=== PATIENT | male | born 1965 | race African-American/Black ===

== ENCOUNTER 2017-07-18 19:52 | Emergency (ER) | payer OTHER ==
[~2017-07-18] VITALS: Ht 175.3 cm; Wt 63.5 kg
[~2017-07-18 19:52] MED LIST: DILAUDID2 MG PO; FENTANYL12 MCG/HR PO; IND25 PO; KEFLEX500 MG PO; LAC PO
[2017-07-18 20:04] VITALS: Ht 175.3 cm; Wt 63.5 kg
[2017-07-18 21:41] LABS: BASOPHIL % 1.7 % (0-2); PLATELET COUNT 258 x10^3mcL (130-400)
[2017-07-18 22:00] LABS: ALBUMIN 3.6 g/dL (3.4-5.0); ALKALINE PHOSPHATASE 73 U/L (46-116); ALT/SGPT 22 U/L (16-63); AST/SGOT 23 U/L (15-37); BILIRUBIN TOTAL 0.4 mg/dL (0.20-1.00); CALCIUM 8.5 mg/dL (8.5-10.1); CARBON DIOXIDE 27.5 mmol/L (21-32); CHLORIDE SERUM 104 mmol/L (98-107); GFR1 > 60 mL/min; GLUCOSE SERUM 107 mg/dL (74-106); LIPASE 120 IU/L (73-393); SODIUM SERUM 144 mmol/L (136-145); TOTAL PROTEIN, SERUM 7.1 g/dL (6.4-8.2)
[2017-07-18 22:02] LABS: POTASSIUM SERUM 2.9 mmol/L (3.5-5.1)
[2017-07-19 01:28] VITALS: BP 129/85
== END 2017-07-19 01:28 | disposition home or self-care (01) ==
LOC: ED 19:52
PROVIDERS: Emergency Medicine
DX: E87.6 Hypokalemia (principal); K86.1 Other chronic pancreatitis; E78.00 Pure hypercholesterolemia, unspecified; F17.210 Nicotine dependence, cigarettes, uncomplicated; Z88.5 Allergy status to narcotic agent; Z88.8 Allergy status to other drugs, medicaments and biological substances; Z88.6 Allergy status to analgesic agent; Z71.6 Tobacco abuse counseling
CPT/HCPCS: 99406; J1170; J2405; Q0162

== ENCOUNTER 2017-08-21 20:41 | Emergency (ER) | payer OTHER ==
[~2017-08-21] VITALS: Ht 175.3 cm; Wt 68.0 kg
[2017-08-21 23:43] VITALS: BP 124/79
== END 2017-08-21 23:43 | disposition home or self-care (01) ==
LOC: ED 20:41
DX: G89.29 Other chronic pain (principal); R10.13 Epigastric pain; R11.2 Nausea with vomiting, unspecified; R19.7 Diarrhea, unspecified; E78.00 Pure hypercholesterolemia, unspecified; Z88.5 Allergy status to narcotic agent; Z88.6 Allergy status to analgesic agent
CPT/HCPCS: Q0162

== ENCOUNTER 2017-08-22 07:34 | Emergency (ER) | payer OTHER ==
[~2017-08-22] VITALS: Ht 175.3 cm; Wt 67.8 kg
[2017-08-22 07:43] VITALS: BP 147/92; Ht 175.3 cm; Wt 67.8 kg
== END 2017-08-22 08:15 | disposition left against medical advice (07) ==
LOC: ED 07:34
DX: G89.29 Other chronic pain (principal); R10.9 Unspecified abdominal pain; R11.10 Vomiting, unspecified; R19.7 Diarrhea, unspecified; E78.00 Pure hypercholesterolemia, unspecified; K80.20 Calculus of gallbladder without cholecystitis without obstruction; Z88.5 Allergy status to narcotic agent; Z88.1 Allergy status to other antibiotic agents; Z88.6 Allergy status to analgesic agent
CPT/HCPCS: 83880

== ENCOUNTER 2018-03-27 14:07 | Emergency (ER) | payer OTHER ==
[~2018-03-27] VITALS: Ht 175.3 cm; Wt 69.9 kg
[2018-03-27 15:53] LABS: microscopic required? NO
[2018-03-27 16:01] LABS: UA SPECIFIC GRAVITY <=1.005 (1.005-1.035); urine erythrocyte NEGATIVE (NEGATIVE)
[2018-03-27 16:20] LABS: AMPHETAMINE QUAL UR NONE DETECTED (See below)
[2018-03-27 16:22] LABS: BASOPHIL % 1.9 % (0-2); PLATELET COUNT 168 x10^3mcL (130-400)
[2018-03-27 16:23] LABS: RED CELL DISTRIBUTION WIDTH 15.1 % (11.5-14.5)
[2018-03-27 16:30] LABS: CALCIUM 9.3 mg/dL (8.5-10.1); CARBON DIOXIDE 22.9 mmol/L (21-32); CHLORIDE SERUM 106 mmol/L (98-107); CREATININE SERUM 0.9 mg/dL (0.7-1.3); GFR1 > 60 mL/min; GLUCOSE SERUM 80 mg/dL (74-106); POTASSIUM SERUM 3.5 mmol/L (3.5-5.1); SODIUM SERUM 139 mmol/L (136-145)
[2018-03-27 16:35] LABS: ALBUMIN 3.8 g/dL (3.4-5.0); ALKALINE PHOSPHATASE 61 U/L (46-116); ALT/SGPT 17 U/L (16-63); AMYLASE 109 U/L (25-115); AST/SGOT 16 U/L (15-37); BILIRUBIN TOTAL 0.5 mg/dL (0.20-1.00); LIPASE 107 IU/L (73-393)
[2018-03-27 17:29] VITALS: BP 131/68
== END 2018-03-27 17:29 | disposition left against medical advice (07) ==
LOC: ED 14:07
PROVIDERS: Emergency Medicine
DX: K29.20 Alcoholic gastritis without bleeding (principal); F10.129 Alcohol abuse with intoxication, unspecified; E78.00 Pure hypercholesterolemia, unspecified; F41.9 Anxiety disorder, unspecified; M10.9 Gout, unspecified; Z88.5 Allergy status to narcotic agent; Z88.6 Allergy status to analgesic agent; Z88.8 Allergy status to other drugs, medicaments and biological substances; Z79.899 Other long term (current) drug therapy; Y90.5 Blood alcohol level of 100-119 mg/100 ml
CPT/HCPCS: G0480; J1885; J2405; J3010; J7030

== ENCOUNTER 2018-03-27 17:54 | Emergency (ER) | payer OTHER ==
[~2018-03-27] VITALS: Ht 175.3 cm; Wt 67.8 kg
[2018-03-27 18:18] VITALS: BP 126/85; Ht 175.3 cm; Wt 67.8 kg
== END 2018-03-27 19:00 | disposition left against medical advice (07) ==
LOC: ED 17:54
DX: F10.129 Alcohol abuse with intoxication, unspecified (principal); G89.29 Other chronic pain; R10.9 Unspecified abdominal pain; E78.00 Pure hypercholesterolemia, unspecified; F41.9 Anxiety disorder, unspecified; M10.9 Gout, unspecified; Z98.890 Other specified postprocedural states; Z88.5 Allergy status to narcotic agent; Z88.6 Allergy status to analgesic agent; Z88.8 Allergy status to other drugs, medicaments and biological substances

== ENCOUNTER 2018-11-26 10:44 | Emergency (ER) | payer OTHER ==
[~2018-11-26] VITALS: Ht 175.3 cm; Wt 72.6 kg
[2018-11-26 10:59] VITALS: BP 153/113; Ht 175.3 cm; Wt 72.6 kg
[2018-11-26 12:18] LABS: BASOPHIL % 0.5 % (0-2); PLATELET COUNT 270 x10^3mcL (130-400)
[2018-11-26 12:20] LABS: CALCIUM 9.6 mg/dL (8.5-10.1); CARBON DIOXIDE 23.8 mmol/L (21-32); CHLORIDE SERUM 106 mmol/L (98-107); CREATININE SERUM 1.1 mg/dL (0.7-1.3); GFR1 > 60 mL/min; GLUCOSE SERUM 98 mg/dL (74-106); POTASSIUM SERUM 3.8 mmol/L (3.5-5.1); SODIUM SERUM 142 mmol/L (136-145)
[2018-11-26 12:22] LABS: RED CELL DISTRIBUTION WIDTH 15.7 % (11.5-14.5)
[2018-11-26 12:26] LABS: ALKALINE PHOSPHATASE 71 U/L (46-116); ALT/SGPT 44 U/L (16-63); AST/SGOT 41 U/L (15-37); LIPASE 55 IU/L (73-393); TOTAL PROTEIN, SERUM 7.9 g/dL (6.4-8.2)
[2018-11-26 12:27] LABS: AMYLASE 262 U/L (25-115)
== END 2018-11-26 12:05 | disposition left against medical advice (07) ==
LOC: ED 10:44
PROVIDERS: Emergency Medicine
DX: R10.13 Epigastric pain (principal); G89.29 Other chronic pain; R19.7 Diarrhea, unspecified; R11.2 Nausea with vomiting, unspecified; E78.00 Pure hypercholesterolemia, unspecified; F41.9 Anxiety disorder, unspecified; Z98.890 Other specified postprocedural states; Z88.5 Allergy status to narcotic agent; Z88.6 Allergy status to analgesic agent; Z88.8 Allergy status to other drugs, medicaments and biological substances
CPT/HCPCS: 36415; Q0162

== ENCOUNTER 2019-06-09 10:37 | Emergency (ER) | payer OTHER ==
[~2019-06-09] VITALS: Ht 175.3 cm; Wt 77.1 kg
[2019-06-09 10:48] VITALS: Ht 175.3 cm; Wt 77.1 kg
[2019-06-09 12:04] VITALS: BP 135/98
== END 2019-06-09 12:04 | disposition home or self-care (01) ==
LOC: ED 10:37
DX: M54.41 Lumbago with sciatica, right side (principal); E78.00 Pure hypercholesterolemia, unspecified; M10.9 Gout, unspecified; F10.10 Alcohol abuse, uncomplicated; F17.210 Nicotine dependence, cigarettes, uncomplicated; Z88.5 Allergy status to narcotic agent; Z88.6 Allergy status to analgesic agent; Z88.8 Allergy status to other drugs, medicaments and biological substances
CPT/HCPCS: J1100